=== PATIENT | male | born 1970 | race Caucasian/White ===

== ENCOUNTER → 2020-05-24 | Emergency (ER) | payer BC ==
[~2020-05-24] VITALS: Ht 162.6 cm; Wt 74.8 kg
[~2020-05-24] MED LIST: MORPHINE SULFATE 4 MG/ML SYR/VIAL IV ONE; MORPHINE SULFATE 4 MG/ML SYR/VIAL ONE; ONDANSETRON HCL 4 MG/2 ML VIAL IV ONE; ONDANSETRON HCL 4 MG/2 ML VIAL ONE
[2020-05-24 05:00] VITALS: BP 143/105
== END | disposition home or self-care (01) ==
LOC: EDBD 01:30 → ER 01:35
DX: K42.9 Umbilical hernia without obstruction or gangrene (principal)
CPT/HCPCS: 96374; 96375; 99284; J2270; J2405

== ENCOUNTER 2020-08-08 02:52 | Inpatient (IN) | payer BC ==
[~2020-08-08] VITALS: Ht 175.3 cm; Wt 86.0 kg
[2020-08-08] MEDS ORDERED: cloNIDine HCL 0.1 MG TAB PO ONE (03:30)
[2020-08-08 04:15] LABS: Basophils # (auto) 0.1 10 ^3/uL (0-0.2); Basophils % (auto) 0.9 % (0.0-2.0); Eosinophils # (auto) 0.5 10 ^3/uL (0-0.8); Eosinophils % (auto) 5.1 % (0.0-7.0); Hematocrit 50.5 % (41.0-53.0); Hemoglobin 16.8 g/dL (13.5-17.5); Lymphocytes # (auto) 1.9 10 ^3/uL (0.4-5.4); Lymphocytes % (auto) 19.7 % (10.0-50.0); Mean Corpuscular Hemoglobin 28.3 pg (28.0-32.0); Mean Corpuscular Hgb Conc. 33.4 g/dL (32.0-36.0); Mean Corpuscular Volume 84.9 fL (80.0-100.0); Monocytes # (auto) 1.1 10 ^3/uL (0-1.3); Monocytes % (auto) 11.1 % (0.0-12.0); Neutrophils % (auto) 63.2 % (37.0-80.0); Nucleated Red Blood Cells % 0.1 %; Platelet Count (auto) 370 10^3/uL (140-450); Red Blood Cells 5.94 10^6/uL (4.5-5.90); Red Cell Distribution Width 13.8 % (11.8-14.3); White Blood Cell 9.6 10^3/uL (4.4-10.8)
[2020-08-08 04:37] LABS: Albumin 3.3 g/dL (3.4-5.0); Anion Gap 7 (5-15); Blood Urea Nitrogen 23 mg/dL (7-18); Calcium 8.9 mg/dL (8.5-10.1); Carbon Dioxide 26 mmol/L (21-32); Chloride 107 mmol/L (98-107); Glucose 83 mg/dL (74-106); Potassium 3.9 mmol/L (3.5-5.1); Sodium 140 mmol/L (136-145)
[2020-08-08 04:42] LABS: Alanine Aminotransferase 51 U/L (16-61); Alkaline Phosphatase 109 U/L (45-117); Aspartate Aminotransferase 26 U/L (15-37); BUN/Creatinine Ratio 21.9; Bilirubin, Total 0.3 mg/dL (0.2-1.0); GFR African American 97 mL/min; GFR Non-African American 80 mL/min; Total Protein 7.2 g/dL (6.4-8.2)
[2020-08-08] MEDS ORDERED: LABETALOL HCL 5 MG/ML 4ML SYRINGE IV ONE (04:45)
[2020-08-08] MEDS ORDERED: TEMAZEPAM 15 MG CAP PO PRN (07:30)
[2020-08-08] MEDS ORDERED: cloNIDine HCL 0.1 MG TAB PO PRN (07:30)
[2020-08-08] MEDS ORDERED: NITROGLYCERIN 0.4 MG SL TAB SL PRN (07:30)
[2020-08-08] MEDS ORDERED: ONDANSETRON HCL 4 MG/2 ML VIAL IV PRN (07:30)
[2020-08-08] MEDS ORDERED: MORPHINE SULF INJ 2 MG/ML SYRINGE 1ML IV PRN (07:30)
[2020-08-08] MEDS ORDERED: ATORVASTATIN 20 MG TAB PO ONE (09:00)
[2020-08-08] MEDS: SODIUM CHLORIDE 0.9% 1,000 ML IV SCH ×2 (09:00→19:28)
[2020-08-08] MEDS: ASPirin 81 mg TAB PO SCH ×2 (09:00→10:18)
[2020-08-08 09:23] LABS: Cholesterol 186 mg/dL (< 200); HDL Cholesterol 43 mg/dL (40-59); LDL Cholesterol 130 mg/dL (< 100); Triglycerides 137 mg/dL (< 150)
[2020-08-08] MEDS ORDERED: ASPirin 81 mg TAB PO SCH (10:00)
--- NOTE | 2020-08-08 10:06 | NUR ---
Telemetry admit from ER DIONISIO MOORE admitted to Telemetry unit after SBAR received. Patient oriented to MAGDALENA YUSUF, primary RN, unit, room, bed, and unit policies regarding patient care and visiting hours. Patient now on continuous telemetry monitoring, tele box # 75 and telemetry reading on arrival to unit is . Patient placed on bedside oxygen, weighed by bedscale and encouraged to call if they need something. All questions and concerns addressed, patient verbalized understanding. Note:
--- NOTE | 2020-08-08 10:07 | NUR ---
U/A COLLECTED SENT TO LAB
--- NOTE | 2020-08-08 10:16 | NUR ---
CALLED DOWN TO ER TO SEE IF MORNING MEDICATIONS WERE GIVEN CONSIDERING PYKSIS SHOWS THE MEDICATIONS HAVE BEEN PULLED, PER ARABELLA STUDENT NURSE WORKING WITH KARYN RN HE DID GIVE THOSE MEDICATIONS AND NEEDS TO DOCUMENT IT
[2020-08-08] MEDS: FAMOTIDINE 20 MG TAB PO SCH ×2 (10:21→21:55)
[2020-08-08] MEDS: CLOPIDOGREL BISULFATE 75 MG TAB PO SCH (10:21)
[2020-08-08 10:22] VITALS: BP 142/94
[2020-08-08] MEDS: amLODIPine BESYLATE 5 MG TAB PO SCH (10:22)
[2020-08-08 10:39] VITALS: BP 142/94
[2020-08-08] MEDS ORDERED: IOHEXOL 350 MG/ML 100ML IJ ONE (11:01)
[2020-08-08 11:10] LABS: Alcohol, Urine < 3.0 mg/dL (0-10); Amphetamine Screen, Urine POSITIVE (NEGATIVE); Barbiturate Scree,Urine NEGATIVE (NEGATIVE); Benzodiazephine Screen, Urine NEGATIVE (NEGATIVE); Cannabinoid Screen, Urine NEGATIVE (NEGATIVE); Cocaine Screen, Urine NEGATIVE (NEGATIVE)
[2020-08-08 11:15] LABS: Urine Bacteria NONE SEEN /hpf (None Seen); Urine Blood Negative /uL (Negative); Urine Hyaline Cast FEW /lpf (0 - 2); Urine Mucus FEW (None Seen); Urine Specific Gravity 1.023 (1.001-1.035); Urine WBC 1 /hpf (0 - 3)
[2020-08-08 11:17] LABS: Opiate Scree,Urine NEGATIVE (NEGATIVE); Phencyclidine Screen, Urine NEGATIVE (NEGATIVE)
--- NOTE | 2020-08-08 11:50 | NUR ---
md meeks rounded on patient informed her of positive drug screen, pt denies illicit drug use, pt advised that he has had a stroke and is not advised to drive until cleared me neurology. also wants swallow eval to be done
[2020-08-08 12:30] VITALS: BP 131/90
--- NOTE | 2020-08-08 14:44 | NUR ---
informed pt that his urine specimen can positive for amphetamine, inquired on last use and habits, per pt "i dont know where that came from,i have to test x2 a week for my own work, i dont do that" pt denied use
--- NOTE | 2020-08-08 16:16 | NUR ---
SWALLOW EVAL ORDERED, BUT PER NURSING AND PATIENT INTERVIEW, NO DIFFICULTY WITH PO INTAKE. NO SWALLOW EVALUATION AT THIS TIME.
[2020-08-08 16:49] VITALS: BP 142/98
[2020-08-08 17:28] VITALS: BP 159/78
--- NOTE | 2020-08-08 19:30 | NUR ---
START OF SHIFT PT. ASLEEP IN BED. BED IN LOW AND LOCKED POSITION. CALL LIGHT WITHIN REACH. WILL ASSESS PATIENT WHEN THEY WAKE AND CONTINUE TO MONITOR PT. STATUS Q1HR AND PRN.
[2020-08-08 22:00] VITALS: BP 138/84
[2020-08-08] MEDS ORDERED: ATORVASTATIN 20 MG TAB PO SCH (22:00)
[2020-08-09] MEDS: SODIUM CHLORIDE 0.9% 1,000 ML IV SCH ×2 (01:35→14:05)
--- NOTE | 2020-08-09 04:15 | NUR ---
RECEIVED REPORT FROM OREN RUIZ NURSE. TAKING OVER. PATIENT ASLEEP RIGHT NOW. NO ACUTE DISTRESS SEEN.
[2020-08-09 04:58] VITALS: BP 138/94
[2020-08-09 08:00] VITALS: BP 135/96
--- NOTE | 2020-08-09 08:04 | NUR ---
OPENING SHIFT NOTE Assumed care of patient. PT is awake and A&OX4. No S/S of distress/SOB or pain. Instructed on POC and to call for assist PRN, patient verbalized understanding. Call light within reach and able to use. Will continue to monitor for changes Q1hr and PRN.
[2020-08-09] MEDS: FAMOTIDINE 20 MG TAB PO SCH ×2 (09:37→21:00)
[2020-08-09] MEDS: CLOPIDOGREL BISULFATE 75 MG TAB PO SCH (09:37)
[2020-08-09] MEDS: ASPirin 81 mg TAB PO SCH (09:37)
[2020-08-09] MEDS: amLODIPine BESYLATE 5 MG TAB PO SCH (09:37)
[2020-08-09 12:00] VITALS: BP 133/104
[2020-08-09 16:00] VITALS: BP 142/103
--- NOTE | 2020-08-09 19:25 | NUR ---
Opening shift note Assumed care of patient from day shift RN. Patient A&Ox4, respirations even and non-labored with no s/s of distress, patient had no c/o pain at this time. Discussed POC with patient who verbalized understanding. Bed in lowest locked position with 2 side rails up, call light within reach. Advised patient to call for assistance. Will continue to monitor Q1hr and PRN.
[2020-08-09 20:50] VITALS: BP 148/99
[2020-08-09] MEDS ORDERED: ATORVASTATIN 20 MG TAB PO SCH (22:00)
[2020-08-09] MEDS: ATORVASTATIN 20 MG TAB PO SCH (22:00)
[2020-08-10] MEDS: SODIUM CHLORIDE 0.9% 1,000 ML IV SCH ×3 (01:06→21:00)
--- NOTE | 2020-08-10 01:09 | NUR ---
Rounding Replaced NS bag, found patient ambulating from the restroom, A&Ox4, gait even and balanced. Patient without s/s of distress or c/o pain at this time.
--- NOTE | 2020-08-10 03:18 | NUR ---
Patient sleeping Patient resting without SOB or s/s of distress.
[2020-08-10 05:16] VITALS: BP 132/98
--- NOTE | 2020-08-10 07:13 | NUR ---
Closing shift note Patient resting, respirations even and non-labored with no s/s of distress at this time. Endorsed care to day shift RN.
--- NOTE | 2020-08-10 07:25 | NUR ---
OPENING SHIFT NOTE Resumed care of patient. PT is awake and A&OX4. No S/S of distress/SOB. Reviewed POC with pt and instructed to to call for assist PRN, patient verbalized understanding. Call light within reach and able to use. Will continue to monitor for changes Q1hr and PRN.
[2020-08-10 08:38] VITALS: BP 159/117
[2020-08-10] MEDS: FAMOTIDINE 20 MG TAB PO SCH ×2 (08:53→20:54)
[2020-08-10] MEDS: ASPirin 81 mg TAB PO SCH (08:53)
[2020-08-10] MEDS: ACETAMINOPHEN 325 MG TAB PO PRN ×2 (08:53→21:19)
[2020-08-10] MEDS: amLODIPine BESYLATE 5 MG TAB PO SCH (08:54)
[2020-08-10] MEDS: CLOPIDOGREL BISULFATE 75 MG TAB PO SCH (08:54)
--- NOTE | 2020-08-10 10:19 | NUR ---
PTS BP IS 159/117. DR TRAN IS AWARE. INSTRUCTED TO USE CLONIDINE ORDERED.
[2020-08-10 13:00] VITALS: BP 146/113
--- NOTE | 2020-08-10 14:05 | NUR ---
Nutrition Assessment Notes Please refer to link for full assessment notes. Est Energy needs: 5882-5934 kcals (20-23 kcal/kgBW) Est Protein needs: 70-88 gms/day (0.8-1.0 gm/kgBW) Will continue to monitor and reassess prn. Addendum: 08/10/20 at [address] Amended: Links added.
[2020-08-10 17:00] VITALS: BP 151/108
--- NOTE | 2020-08-10 19:20 | NUR ---
Opening shift note Assumed care of patient who is A&Ox4, respirations even and non-labored with no s/s of distress. Discussed POC with patient who verbalized understanding. Bed in lowest locked position with 2 side rails up, call light within reach. Advised patient to call for assistance. Will continue to monitor Q1hr and PRN.
[2020-08-10] MEDS: ATORVASTATIN 20 MG TAB PO SCH (20:54)
--- NOTE | 2020-08-10 21:25 | NUR ---
Patient c/o headache Administered Tylenol per EMAR. Will continue to monitor.
[2020-08-10 22:14] VITALS: BP 156/114
--- NOTE | 2020-08-10 23:00 | NUR ---
Headache reassessed Patient resting without s/s of distress or c/o pain at this time. Will continue to monitor.
[2020-08-11 00:32] VITALS: BP 150/113
[2020-08-11 04:48] VITALS: BP 154/120
--- NOTE | 2020-08-11 05:12 | NUR ---
Patient resting Awoke on entry. Patient stated that he felt good and did not feel any pain or headache at the time. Will continue to monitor.
--- NOTE | 2020-08-11 07:31 | NUR ---
Closing shift note Patient resting with no s/s of distress at this time. Endorsed care to day shift RN.
[2020-08-11] MEDS: SODIUM CHLORIDE 0.9% 1,000 ML IV SCH (08:19)
[2020-08-11 09:00] VITALS: BP 141/106
[2020-08-11] MEDS: ACETAMINOPHEN 325 MG TAB PO PRN (09:07)
[2020-08-11] MEDS: ASPirin 81 mg TAB PO SCH (09:53)
[2020-08-11] MEDS: FAMOTIDINE 20 MG TAB PO SCH (09:55)
[2020-08-11] MEDS: CLOPIDOGREL BISULFATE 75 MG TAB PO SCH (09:55)
[2020-08-11] MEDS: amLODIPine BESYLATE 5 MG TAB PO SCH (09:55)
[2020-08-11] MEDS ORDERED: AML5T PO (12:26)
[2020-08-11] MEDS ORDERED: ASPI-231 PO (12:26)
[2020-08-11] MEDS ORDERED: ATOR20TA50 PO (12:26)
[2020-08-11] MEDS ORDERED: LOSA-69 PO (12:27)
[2020-08-11] MEDS ORDERED: HYDR12.55 PO (12:28)
[2020-08-11] MEDS ORDERED: METO25TA93 PO (12:29)
[2020-08-11] MEDS ORDERED: FAMO-12 PO (12:35)
--- NOTE | 2020-08-11 13:50 | NUR ---
Discharge Went over discharge paperwork with patient. Instructed to call Dr. Pinto's office to schedule a follow up visit and stressed that he is not to drive until he is cleared by Neurology. Prescriptions were called in to [facility] by the MD; patient does not have his own outside pharmacy. Removed IV intact, no problem. Removed telemetry box and sent to ICU per hospital protocol. 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 Patient denies any dizziness anymore and states he will definitely take his medications from now on.
== END 2020-08-11 13:45 | disposition home or self-care (01) | DRG 65 ==
LOC: ER 02:53 → TELE 02:54 → TELE-WESTW 10:08
PROVIDERS: ADMIT Nurse Practitioner; ATTEND Internal Medicine Nephrology
DX: I63.9 Cerebral infarction, unspecified (principal); F05 Delirium due to known physiological condition; I16.1 Hypertensive emergency; E66.3 Overweight; E78.5 Hyperlipidemia, unspecified; F15.10 Other stimulant abuse, uncomplicated; I70.0 Atherosclerosis of aorta; Z79.02 Long term (current) use of antithrombotics/antiplatelets; Z79.82 Long term (current) use of aspirin; Z79.899 Other long term (current) drug therapy; Z82.3 Family history of stroke; Z82.49 Family history of ischemic heart disease and other diseases of the circulatory system; Z91.14 Patient's other noncompliance with medication regimen; Z91.19 Patient's noncompliance with other medical treatment and regimen; I10 Essential (primary) hypertension; I07.1 Rheumatic tricuspid insufficiency; R26.9 Unspecified abnormalities of gait and mobility; R29.700 NIHSS score 0; R53.1 Weakness
CPT/HCPCS: 36415; 70450; 70496; 70498; 70551; 71045; 80053; 80061; 80307; 81001; 83880; 84484; 85025; 93005; 93306; 96361; 96374; G0378; J3490

== ENCOUNTER → 2020-09-01 | Outpatient (CLI) | payer BC ==
[~2020-09-01] MED LIST changes: +ASPI-231 PO; +ATOR20TA50 PO; +FAMO-12 PO; +HYDR12.55 PO; +LOSA-69 PO; +METO25TA93 PO; -MORPHINE SULFATE 4 MG/ML SYR/VIAL IV ONE; -MORPHINE SULFATE 4 MG/ML SYR/VIAL ONE; -ONDANSETRON HCL 4 MG/2 ML VIAL IV ONE; -ONDANSETRON HCL 4 MG/2 ML VIAL ONE
[2020-09-01 10:28] LABS: Basophils # (auto) 0.1 10 ^3/uL (0-0.2); Eosinophils # (auto) 0.3 10 ^3/uL (0-0.8); Monocytes # (auto) 0.7 10 ^3/uL (0-1.3); White Blood Cell 7.4 10^3/uL (4.4-10.8)
[2020-09-01 10:31] LABS: Eosinophils % (auto) 4.1 % (0.0-7.0); Hematocrit 47.2 % (41.0-53.0); Hemoglobin 16.3 g/dL (13.5-17.5); Lymphocytes # (auto) 2.1 10 ^3/uL (0.4-5.4); Lymphocytes % (auto) 28.3 % (10.0-50.0); Mean Corpuscular Hemoglobin 28.7 pg (28.0-32.0); Mean Corpuscular Hgb Conc. 34.5 g/dL (32.0-36.0); Mean Corpuscular Volume 83.2 fL (80.0-100.0); Monocytes % (auto) 9.4 % (0.0-12.0); Neutrophils # (auto) 4.2 10 ^3/uL (1.6-8.6); Neutrophils % (auto) 57.2 % (37.0-80.0); Red Blood Cells 5.67 10^6/uL (4.5-5.90); Red Cell Distribution Width 13.6 % (11.8-14.3)
[2020-09-01 10:39] LABS: Platelet Count (auto) 466 10^3/uL (140-450)
[2020-09-01 10:47] LABS: Albumin 3.5 g/dL (3.4-5.0); Calcium 9.3 mg/dL (8.5-10.1); Potassium 3.6 mmol/L (3.5-5.1)
[2020-09-01 10:52] LABS: BUN/Creatinine Ratio 24.2; Bilirubin, Total 0.5 mg/dL (0.2-1.0); Total Protein 7.4 g/dL (6.4-8.2)
== END | disposition home or self-care (01) ==
LOC: LAB 09:41
PROVIDERS: ATTEND Internal Medicine Nephrology
DX: I12.9 Hypertensive chronic kidney disease with stage 1 through stage 4 chronic kidney disease, or unspecified chronic kidney disease (principal); N18.30 Chronic kidney disease, stage 3 unspecified; I63.9 Cerebral infarction, unspecified
CPT/HCPCS: 36415; 80053; 85025

== ENCOUNTER 2020-09-04 11:21 | Emergency (ER) | payer BC ==
[~2020-09-04] VITALS: Ht 175.3 cm; Wt 86.2 kg
[2020-09-04 11:31] VITALS: BP 123/95
== END 2020-09-04 11:53 | disposition left against medical advice (07) ==
LOC: ER 11:21
DX: R51.9 Headache, unspecified (principal); Z53.21 Procedure and treatment not carried out due to patient leaving prior to being seen by health care provider

== ENCOUNTER 2020-11-16 20:21 | Emergency (ER) | payer BC ==
[~2020-11-16] VITALS: Ht 175.3 cm; Wt 81.6 kg
[~2020-11-16 20:21] MED LIST changes: -ASPI-231 PO; -LOSA-69 PO; -METO25TA93 PO
[2020-11-16] MEDS ORDERED: cloNIDine HCL 0.1 MG TAB PO ONE (21:30)
[2020-11-16 21:50] VITALS: BP 186/105
[2020-11-17 01:02] LABS: Basophils # (auto) 0 10 ^3/uL (0-0.2); Basophils % (auto) 0.2 % (0.0-2.0); Eosinophils # (auto) 0.4 10 ^3/uL (0-0.8); Eosinophils % (auto) 5.3 % (0.0-7.0); Hematocrit 47.7 % (41.0-53.0); Hemoglobin 16.1 g/dL (13.5-17.5); Lymphocytes # (auto) 2.5 10 ^3/uL (0.4-5.4); Lymphocytes % (auto) 29.7 % (10.0-50.0); Mean Corpuscular Hemoglobin 28.4 pg (28.0-32.0); Mean Corpuscular Hgb Conc. 33.7 g/dL (32.0-36.0); Mean Corpuscular Volume 84.3 fL (80.0-100.0); Monocytes # (auto) 0.9 10 ^3/uL (0-1.3); Monocytes % (auto) 10.3 % (0.0-12.0); Neutrophils # (auto) 4.6 10 ^3/uL (1.6-8.6); Neutrophils % (auto) 54.5 % (37.0-80.0); Nucleated Red Blood Cells % 0.1 %; Platelet Count (auto) 358 10^3/uL (140-450); Red Blood Cells 5.66 10^6/uL (4.5-5.90); Red Cell Distribution Width 14.2 % (11.8-14.3); White Blood Cell 8.5 10^3/uL (4.4-10.8)
[2020-11-17 01:27] LABS: Albumin 3.4 g/dL (3.4-5.0); Anion Gap 6 (5-15); BUN/Creatinine Ratio 18.1; Blood Urea Nitrogen 19 mg/dL (7-18); Carbon Dioxide 27 mmol/L (21-32); Chloride 106 mmol/L (98-107); GFR African American 96 mL/min; GFR Non-African American 79 mL/min; Glucose 84 mg/dL (74-106); Magnesium 2.4 mg/dL (1.6-2.6); Potassium 4.4 mmol/L (3.5-5.1); Sodium 139 mmol/L (136-145)
[2020-11-17 01:34] LABS: Alanine Aminotransferase 45 U/L (16-61); Alkaline Phosphatase 107 U/L (45-117); Aspartate Aminotransferase 22 U/L (15-37); Bilirubin, Total 0.4 mg/dL (0.2-1.0); Total Protein 7.3 g/dL (6.4-8.2)
== END 2020-11-17 04:07 | disposition home or self-care (01) ==
LOC: ER 20:23
DX: I12.9 Hypertensive chronic kidney disease with stage 1 through stage 4 chronic kidney disease, or unspecified chronic kidney disease (principal); N18.9 Chronic kidney disease, unspecified; H66.90 Otitis media, unspecified, unspecified ear; R07.89 Other chest pain; Z79.899 Other long term (current) drug therapy
CPT/HCPCS: 36415; 70450; 71045; 80053; 83735; 83880; 84484; 85025; 93005

== ENCOUNTER 2022-05-20 21:41 | Inpatient (IN) | payer BC ==
[~2022-05-20] VITALS: Ht 177.8 cm; Wt 86.1 kg
[2022-05-20] MEDS ORDERED: ACETAMINOPHEN 325 MG TAB PO ONE ×2 (22:15)
[2022-05-20] MEDS ORDERED: SODIUM CHLORIDE 0.9% 1,000 ML IV ONE (22:15)
[2022-05-20 23:28] LABS: Basophils # (auto) 0 10 ^3/uL (0-0.2); Basophils % (auto) 0.3 % (0.0-2.0); Eosinophils # (auto) 0.1 10 ^3/uL (0-0.8); Eosinophils % (auto) 1.1 % (0.0-7.0); Hemoglobin 15.5 g/dL (13.5-17.5); Lymphocytes # (auto) 0.3 10 ^3/uL (0.4-5.4); Lymphocytes % (auto) 3.1 % (10.0-50.0); Mean Corpuscular Hemoglobin 27.9 pg (28.0-32.0); Mean Corpuscular Hgb Conc. 33.6 g/dL (32.0-36.0); Monocytes # (auto) 1.2 10 ^3/uL (0-1.3); Neutrophils # (auto) 6.7 10 ^3/uL (1.6-8.6); Neutrophils % (auto) 80.5 % (37.0-80.0); Red Blood Cells 5.55 10^6/uL (4.5-5.90); Red Cell Distribution Width 14.1 % (11.8-14.3); White Blood Cell 8.3 10^3/uL (4.4-10.8)
[2022-05-20 23:47] LABS: Albumin 3.4 g/dL (3.4-5.0); BUN/Creatinine Ratio 13.3; Calcium 8.2 mg/dL (8.5-10.1); Potassium 3.3 mmol/L (3.5-5.1)
[2022-05-20 23:48] LABS: Bilirubin, Total 0.7 mg/dL (0.2-1.0); Total Protein 6.6 g/dL (6.4-8.2)
[2022-05-21 01:55] LABS: INR 1.13 (0.9-1.15); Partial Thromboplastin Time 30.2 sec (23.6-33.0)
[2022-05-21] MEDS ORDERED: ACETAMINOPHEN 325 MG TAB PO ONE (04:00)
[2022-05-21] MEDS ORDERED: LABETALOL HCL 5 MG/ML 4ML SYRINGE IV ONE (04:00)
[2022-05-21] MEDS ORDERED: cefTRIAXone 1GM/50ML D5W 50 ML IV ONE (04:15)
[2022-05-21] MEDS ORDERED: AZITHROMYCIN 500MG/ 250ML 250 ML IV ONE (04:15)
[2022-05-21] MEDS ORDERED: ALBUTEROL SULF HFA 90MCG INH 200DOSE IN PRN (04:15)
[2022-05-21] MEDS ORDERED: ACETAMINOPHEN 500 MG TAB PO PRN (04:15)
[2022-05-21] MEDS ORDERED: DOCUSATE SOD 100 MG CAP PO PRN (04:15)
[2022-05-21] MEDS ORDERED: SOD CHL 0.45% 1,000 ML IV SCH (04:15)
[2022-05-21] MEDS ORDERED: HYDROcodone-ACET 5/325MG TAB PO PRN (04:15)
[2022-05-21] MEDS ORDERED: hydrALAZINE HCL 20 MG/ML VL IV PRN (04:15)
[2022-05-21] MEDS ORDERED: ONDANSETRON HCL 4 MG/2 ML VIAL IV PRN (04:15)
[2022-05-21] MEDS ORDERED: IOHEXOL 300 MG/ML 100ML BOTTLE IJ ONE (04:31)
[2022-05-21] MEDS ORDERED: MORPHINE SULFATE INJ 2 MG/ml SYRG IV PRN (05:30)
[2022-05-21] MEDS ORDERED: NITROGLYCERIN 0.4 MG SL TAB SL PRN (05:30)
[2022-05-21 07:12] LABS: Albumin 3.2 g/dL (3.4-5.0); Magnesium 2.2 mg/dL (1.6-2.6); Potassium 3.2 mmol/L (3.5-5.1)
[2022-05-21 07:15] LABS: BUN/Creatinine Ratio 11.5; Basophils # (auto) 0 10 ^3/uL (0-0.2); Basophils % (auto) 0.3 % (0.0-2.0); Bilirubin, Total 0.6 mg/dL (0.2-1.0); Eosinophils # (auto) 0 10 ^3/uL (0-0.8); Eosinophils % (auto) 0.5 % (0.0-7.0); Hematocrit 47.1 % (41.0-53.0); Mean Corpuscular Hemoglobin 28.3 pg (28.0-32.0); Mean Corpuscular Hgb Conc. 33.9 g/dL (32.0-36.0); Mean Corpuscular Volume 83.3 fL (80.0-100.0); Neutrophils % (auto) 75.1 % (37.0-80.0); Red Blood Cells 5.66 10^6/uL (4.5-5.90); Red Cell Distribution Width 14.2 % (11.8-14.3); Total Protein 6.6 g/dL (6.4-8.2)
[2022-05-21 07:25] LABS: Lymphocytes # (auto) 0.6 10 ^3/uL (0.4-5.4); Lymphocytes % (auto) 6.9 % (10.0-50.0); Monocytes # (auto) 1.3 10 ^3/uL (0-1.3); Monocytes % (auto) 17.2 % (0.0-12.0)
[2022-05-21] MEDS: POTASSIUM CHL 20MEQ/100ML 100 ML IV SCH ×2 (08:21→11:00)
[2022-05-21] MEDS ORDERED: FAMOTIDINE (10MG/ML) 2ML VL IV SCH (10:00)
[2022-05-21] MEDS ORDERED: CHOLECALCIFEROL (VITD3) 2,000 UNIT CAP/TAB PO SCH (10:00)
[2022-05-21] MEDS ORDERED: MULTIPLE VITAMIN TAB PO SCH (10:00)
[2022-05-21] MEDS ORDERED: ASCORBIC ACID 1,000 MG TAB PO SCH (10:00)
[2022-05-21] MEDS ORDERED: DexAMETHasone SOD PHOS 10MG/1ML VIAL INJ IV SCH (10:00)
[2022-05-21] MEDS ORDERED: amLODIPine BESYLATE 5 MG TAB PO SCH (10:00)
[2022-05-21] MEDS ORDERED: ZINC SULFATE 220mg CAP or TAB PO SCH (10:00)
[2022-05-21] MEDS ORDERED: ENOXAPARIN SOD 40 MG/0.4 ML SYRINGE SC SCH (10:00)
[2022-05-21] MEDS ORDERED: METOPROLOL TARTRATE 50 MG TAB PO SCH (10:00)
[2022-05-21] MEDS ORDERED: BUDESONIDE (INHALATION) 180 MCG IH IN SCH (10:00)
[2022-05-21 10:22] VITALS: BP 140/94
[2022-05-21] MEDS ORDERED: AZIT500T66 PO (12:12)
[2022-05-21 12:25] VITALS: BP 150/98
[2022-05-21 12:50] VITALS: BP 150/106
[2022-05-21 15:28] VITALS: BP 148/98
[2022-05-21] MEDS ORDERED: cefTRIAXone 1GM/50ML D5W 50 ML IV SCH (21:00)
[2022-05-21] MEDS ORDERED: AZITHROMYCIN 500MG/ 250ML 250 ML IV SCH (22:00)
== END 2022-05-21 17:22 | disposition home or self-care (01) | DRG 177 ==
LOC: ER 21:41 → EDBD 21:41 → OVERFLOW 05-21 05:22 → CENTRAL 05-21 10:28
PROVIDERS: ADMIT Nurse Practitioner Family; ATTEND Internal Medicine Pulmonary Disease
DX: U07.1 COVID-19 (principal); J12.82 Pneumonia due to coronavirus disease 2019; E87.6 Hypokalemia; G44.209 Tension-type headache, unspecified, not intractable; I12.9 Hypertensive chronic kidney disease with stage 1 through stage 4 chronic kidney disease, or unspecified chronic kidney disease; N18.9 Chronic kidney disease, unspecified; Z86.73 Personal history of transient ischemic attack (TIA), and cerebral infarction without residual deficits
CPT/HCPCS: 36415; 70450; 71045; 71260; 74177; 80053; 82306; 83036; 83605; 83735; 85025; 85379; 85610; 85730; 87040; 93005; 94640; 96365; 96375; G0378; J0696; J1100; J3480; J3490

== ENCOUNTER 2022-11-26 20:39 | Inpatient (IN) | payer BC ==
[~2022-11-26] VITALS: Ht 182.9 cm; Wt 94.4 kg
[~2022-11-26 20:39] MED LIST changes: +AZIT500T66 PO
[2022-11-26] MEDS ORDERED: SODIUM CHLORIDE 0.9% 1,000 ML IV ONE (22:45)
[2022-11-26] MEDS ORDERED: MORPHINE SULFATE 4 MG/ML SYR/VIAL IV ONE (22:45)
[2022-11-26] MEDS ORDERED: ONDANSETRON HCL 4 MG/2 ML VIAL IV ONE (22:45)
[2022-11-26 23:47] LABS: Hemoglobin 18.8 g/dL (13.5-17.5)
[2022-11-26 23:48] LABS: Basophils # (auto) 0.1 10 ^3/uL (0-0.2); Basophils % (auto) 0.7 % (0.0-2.0); Eosinophils # (auto) 0.1 10 ^3/uL (0-0.8); Eosinophils % (auto) 0.8 % (0.0-7.0); Lymphocytes # (auto) 0.5 10 ^3/uL (0.4-5.4); Lymphocytes % (auto) 3.5 % (10.0-50.0); Mean Corpuscular Hgb Conc. 33.5 g/dL (32.0-36.0); Mean Corpuscular Volume 83.6 fL (80.0-100.0); Monocytes # (auto) 0.4 10 ^3/uL (0-1.3); Monocytes % (auto) 2.3 % (0.0-12.0); Neutrophils # (auto) 14.5 10 ^3/uL (1.6-8.6); Neutrophils % (auto) 92.7 % (37.0-80.0); Nucleated Red Blood Cells % 0.8 %; Red Cell Distribution Width 14.2 % (11.8-14.3); White Blood Cell 15.7 10^3/uL (4.4-10.8)
[2022-11-27] LABS: BUN/Creatinine Ratio 19.3; Calcium 10.1 mg/dL (8.5-10.1); Potassium 3.8 mmol/L (3.5-5.1)
[2022-11-27 00:11] LABS: Bilirubin, Total 0.9 mg/dL (0.2-1.0); Total Protein 7.6 g/dL (6.4-8.2)
[2022-11-27] MEDS ORDERED: HYDROcodone-ACET 5/325MG TAB PO PRN (02:15)
[2022-11-27] MEDS ORDERED: MAALOX PLUS or MAALOX 30 ML PO PRN (02:15)
[2022-11-27] MEDS ORDERED: ONDANSETRON HCL 4 MG/2 ML VIAL IV PRN ×3 (02:15→14:30)
[2022-11-27] MEDS ORDERED: ACETAMINOPHEN 325 MG TAB PO PRN (02:15)
[2022-11-27] MEDS ORDERED: D5W 5% 1,000 ML IV SCH (02:15)
[2022-11-27] MEDS ORDERED: DOCUSATE SOD 100 MG CAP PO PRN (02:15)
[2022-11-27] MEDS ORDERED: LORazepam 0.5 MG TAB PO PRN (02:15)
[2022-11-27] MEDS ORDERED: TEMAZEPAM 15 MG CAP PO PRN (02:15)
[2022-11-27] MEDS: metroNIDAZOLE 500MG/100ML 100 ML IV SCH ×3 (02:48→22:30)
[2022-11-27 08:07] LABS: Eosinophils # (auto) 0 10 ^3/uL (0-0.8); Hemoglobin 17.6 g/dL (13.5-17.5); Mean Corpuscular Hemoglobin 28.1 pg (28.0-32.0); Mean Corpuscular Hgb Conc. 33.7 g/dL (32.0-36.0); Mean Corpuscular Volume 83.3 fL (80.0-100.0)
[2022-11-27 08:09] LABS: Basophils # (auto) 0.1 10 ^3/uL (0-0.2); Basophils % (auto) 0.4 % (0.0-2.0); Hematocrit 52.2 % (41.0-53.0); Lymphocytes # (auto) 0.6 10 ^3/uL (0.4-5.4); Lymphocytes % (auto) 4.9 % (10.0-50.0); Monocytes % (auto) 7.7 % (0.0-12.0); Neutrophils # (auto) 10.9 10 ^3/uL (1.6-8.6); Red Blood Cells 6.27 10^6/uL (4.5-5.90); Red Cell Distribution Width 14.2 % (11.8-14.3); White Blood Cell 12.6 10^3/uL (4.4-10.8)
[2022-11-27 08:24] LABS: BUN/Creatinine Ratio 18.4; Calcium 8.9 mg/dL (8.5-10.1); Potassium 3.4 mmol/L (3.5-5.1)
[2022-11-27] MEDS: MORPHINE SULFATE INJ 2 MG/ml SYRG IV PRN (08:26)
[2022-11-27 09:33] LABS: Urine Bacteria NONE SEEN /hpf (None Seen); Urine Blood Negative /uL (Negative); Urine Hyaline Cast FEW /lpf (0 - 2); Urine Mucus FEW (None Seen); Urine Specific Gravity 1.037 (1.001-1.035); Urine WBC 2 /hpf (0 - 3)
[2022-11-27] MEDS ORDERED: cefTRIAXone 1GM/50ML D5W 50 ML IV ONE (11:30)
[2022-11-27] MEDS ORDERED: fentaNYL CITRATE 100 MCG/2 ML VL ONE (11:47)
[2022-11-27] MEDS ORDERED: HYDROmorphone HCL 2 MG/ML VL/or syr ONE (11:47)
[2022-11-27] MEDS ORDERED: MIDAZOLAM HCL 2MG/2ML 2ml VIAL (1mg/ml) ONE (11:48)
[2022-11-27] MEDS ORDERED: DexAMETHasone SOD PHOS 10MG/1ML VIAL INJ ONE (11:49)
[2022-11-27] MEDS ORDERED: KETOROLAC TROMETH 30 MG/ML 1ML VIAL ONE (11:49)
[2022-11-27] MEDS ORDERED: PROPOFOL 10 MG/ML 20 ML IV ONE (11:49)
[2022-11-27] MEDS ORDERED: LIDOCAINE 2% (LOCAL ANESTH.) PF 5ml SDV ONE (11:49)
[2022-11-27] MEDS ORDERED: GLYCOPYRROLATE 0.2 MG/ML 1ML VIAL ONE (11:49)
[2022-11-27] MEDS ORDERED: ePHEDrine SULFATE 50 MG/ML AMP ONE (11:49)
[2022-11-27] MEDS ORDERED: ONDANSETRON HCL 4 MG/2 ML VIAL ONE (11:49)
[2022-11-27 11:52] LABS: INR 1.05 (0.9-1.15); Partial Thromboplastin Time 27.5 sec (24.6-33.4)
[2022-11-27] MEDS ORDERED: ceFAZolin 1GM VL ONE (12:38)
[2022-11-27] MEDS ORDERED: LIDOCAINE 1%-Mpf/Epinephrine 1:200,000 ONE (12:51)
[2022-11-27] MEDS ORDERED: BUPIVACAINE 0.25% INJ 50ML VIAL ONE (12:51)
[2022-11-27] MEDS ORDERED: SUGAMMADEX 200mg/2ml Vial (100MG/ML) IV ONE (13:51)
[2022-11-27] MEDS ORDERED: POVIDONE IODINE 10 % TOPICAL OINT 30GM TOP ONE (13:59)
[2022-11-27] MEDS ORDERED: ACETAMINOPHEN/CODEINE#3 (300/30mg) TAB PO PRN (14:00)
[2022-11-27] MEDS ORDERED: HYDROmorphone HCL 2 MG/ML VL/or syr IV ONE (14:00)
[2022-11-27] MEDS ORDERED: MEPERIDINE HCL (25 MG/ML) 1ML VIAL ONE (14:05)
[2022-11-27] MEDS ORDERED: HYDROmorphone HCL 2 MG/ML VL/or syr IV PRN (14:30)
[2022-11-27 17:00] VITALS: BP 118/82
[2022-11-27] MEDS: D5W/SOD CHL 0.45%/KCL 20MEQ 1,000 ML IV SCH (20:46)
[2022-11-27] MEDS: ceFAZolin 1GM/50ML 50 ML IV SCH (21:45)
[2022-11-27 22:00] VITALS: BP 119/86
[2022-11-28 05:00] VITALS: BP 128/90
[2022-11-28] MEDS: ceFAZolin 1GM/50ML 50 ML IV SCH ×3 (05:45→21:42)
[2022-11-28] MEDS: metroNIDAZOLE 500MG/100ML 100 ML IV SCH ×3 (06:30→22:20)
[2022-11-28] MEDS: MORPHINE SULFATE INJ 2 MG/ml SYRG IV PRN ×2 (06:30→15:51)
[2022-11-28] MEDS: D5W/SOD CHL 0.45%/KCL 20MEQ 1,000 ML IV SCH ×3 (06:40→23:20)
[2022-11-28] MEDS: PANTOPRAZOLE 40 MG/10 ML VIAL INJ IV SCH (08:30)
[2022-11-28 09:00] VITALS: BP 138/90
[2022-11-28] MEDS ORDERED: cefTRIAXone 1GM/50ML D5W 50 ML IV SCH (09:00)
[2022-11-28 13:00] VITALS: BP 136/89
[2022-11-28 17:00] VITALS: BP 156/107
[2022-11-28 22:00] VITALS: BP 137/87
[2022-11-29 05:00] VITALS: BP 156/97
[2022-11-29] MEDS: ceFAZolin 1GM/50ML 50 ML IV SCH ×3 (05:43→21:45)
[2022-11-29] MEDS: MORPHINE SULFATE INJ 2 MG/ml SYRG IV PRN (05:45)
[2022-11-29] MEDS: metroNIDAZOLE 500MG/100ML 100 ML IV SCH ×3 (06:30→22:20)
[2022-11-29] MEDS: PANTOPRAZOLE 40 MG/10 ML VIAL INJ IV SCH (08:21)
[2022-11-29 09:00] VITALS: BP 169/107
[2022-11-29] MEDS ORDERED: cloNIDine HCL 0.1 MG TAB PO ONE (09:15)
[2022-11-29] MEDS: MUPIROCIN 2% OINT 15gm or 22gm FOR MRSA NARES EACHNOSTRI SCH ×2 (10:00→22:00)
[2022-11-29 11:04] VITALS: BP 125/91
[2022-11-29 13:00] VITALS: BP 130/92
[2022-11-29 17:00] VITALS: BP 139/92
[2022-11-29 22:00] VITALS: BP 135/98
[2022-11-30 05:00] VITALS: BP 158/109
[2022-11-30] MEDS: ceFAZolin 1GM/50ML 50 ML IV SCH ×2 (05:55→13:05)
[2022-11-30] MEDS: metroNIDAZOLE 500MG/100ML 100 ML IV SCH ×3 (06:06→13:06)
[2022-11-30] MEDS ORDERED: cloNIDine HCL 0.1 MG TAB PO ONE (06:15)
[2022-11-30] MEDS: PANTOPRAZOLE 40 MG/10 ML VIAL INJ IV SCH (08:09)
[2022-11-30] MEDS: MUPIROCIN 2% OINT 15gm or 22gm FOR MRSA NARES EACHNOSTRI SCH (08:12)
[2022-11-30 09:14] VITALS: BP 113/80
[2022-11-30 09:51] VITALS: BP 166/106
[2022-11-30 10:15] VITALS: BP 113/80
[2022-11-30] MEDS ORDERED: LEVO750T8 PO (10:42)
[2022-11-30] MEDS ORDERED: METR500T PO (10:42)
[2022-11-30] MEDS ORDERED: HYDR-4902 PO (10:42)
[2022-11-30 13:30] VITALS: BP 125/92
[2022-11-30 15:03] VITALS: BP 162/106
== END 2022-11-30 15:31 | disposition home or self-care (01) | DRG 854 ==
LOC: ER 20:39 → EDBD 20:39 → OVERFLOW 11-27 02:24 → EAST 11-27 12:20
PROVIDERS: ADMIT Hospitalist; ATTEND Family Medicine
PROC: 0WQF0ZZ Repair Abdominal Wall, Open Approach (ICD-10-PCS; principal; 2022-11-27 12:53)
DX: A41.9 Sepsis, unspecified organism (principal); K42.0 Umbilical hernia with obstruction, without gangrene; K43.6 Other and unspecified ventral hernia with obstruction, without gangrene; E86.0 Dehydration; I10 Essential (primary) hypertension; Z20.822 Contact with and (suspected) exposure to COVID-19; N18.9 Chronic kidney disease, unspecified; I12.9 Hypertensive chronic kidney disease with stage 1 through stage 4 chronic kidney disease, or unspecified chronic kidney disease; Z86.73 Personal history of transient ischemic attack (TIA), and cerebral infarction without residual deficits
CPT/HCPCS: 36415; 74176; 80048; 80053; 81001; 83690; 84484; 85025; 85610; 85730; 86850; 86900; 86901; 87081; 87426; 88302; 93005; 96361; 96374; 96375; 97163; C9113; G0378; J0690; J0696; J1100; J1885; J2001; J2250; J2405; J2704; J3490

== ENCOUNTER 2023-06-02 02:58 | Inpatient (IN) | payer BC ==
[~2023-06-02] VITALS: Ht 175.3 cm; Wt 105.4 kg
[~2023-06-02 02:58] MED LIST changes: +HYDR-4902 PO; +LEVO750T8 PO; +METR500T PO
[2023-06-02 04:17] LABS: Basophils # (auto) 0.1 10 ^3/uL (0-0.2); Basophils % (auto) 0.9 % (0.0-2.0); Eosinophils # (auto) 0.3 10 ^3/uL (0-0.8); Eosinophils % (auto) 2.8 % (0.0-7.0); Hemoglobin 17.4 g/dL (13.5-17.5); Lymphocytes # (auto) 1.5 10 ^3/uL (0.4-5.4); Lymphocytes % (auto) 12.5 % (10.0-50.0); Mean Corpuscular Hemoglobin 29.4 pg (28.0-32.0); Mean Corpuscular Hgb Conc. 34.8 g/dL (32.0-36.0); Mean Corpuscular Volume 84.5 fL (80.0-100.0); Monocytes # (auto) 1.3 10 ^3/uL (0-1.3); Monocytes % (auto) 10.9 % (0.0-12.0); Neutrophils # (auto) 8.7 10 ^3/uL (1.6-8.6); Neutrophils % (auto) 72.9 % (37.0-80.0); Nucleated Red Blood Cells % 0.2 %; Red Blood Cells 5.92 10^6/uL (4.5-5.90); Red Cell Distribution Width 14.4 % (11.8-14.3); White Blood Cell 11.9 10^3/uL (4.4-10.8)
[2023-06-02] MEDS ORDERED: hydrALAZINE HCL 20 MG/ML VL IV ONE (04:30)
[2023-06-02 04:34] LABS: Albumin 3.8 g/dL (3.4-5.0); Calcium 8.7 mg/dL (8.5-10.1); Potassium 3.7 mmol/L (3.5-5.1)
[2023-06-02 04:36] LABS: BUN/Creatinine Ratio 12.5 (10.0-20.0)
[2023-06-02 04:38] LABS: Bilirubin, Total 1.1 mg/dL (0.2-1.0); Total Protein 7.4 g/dL (6.4-8.2)
[2023-06-02] MEDS ORDERED: HYDROmorphone HCL 2 MG/ML VL/or syr IV ONE (04:45)
[2023-06-02] MEDS ORDERED: ONDANSETRON HCL 4 MG/2 ML VIAL IV ONE (04:45)
[2023-06-02 10:50] LABS: Phosphorus 3.3 mg/dL (2.5-4.90)
[2023-06-02 11:56] LABS: INR 1.05 (0.9-1.15)
[2023-06-02] MEDS: CYCLOBENZAPRINE HCL 10 MG TAB PO PRN ×2 (12:10→22:07)
[2023-06-02] MEDS: MORPHINE SULFATE INJ 2 MG/ml SYRG IV PRN (12:11)
[2023-06-02] MEDS: hydrALAZINE HCL 20 MG/ML VL IV PRN (12:11)
[2023-06-02 12:25] LABS: Urine Bacteria FEW /hpf (None Seen); Urine Blood Negative /uL (Negative); Urine Mucus MODERATE (None Seen); Urine Specific Gravity 1.033 (1.001-1.035); Urine WBC 2 /hpf (0 - 3)
[2023-06-02] MEDS ORDERED: METOPROLOL TARTRATE 50 MG TAB PO ONE (15:30)
[2023-06-02] MEDS ORDERED: KETOROLAC TROMETH 30 MG/ML 1ML VIAL IV ONE (15:30)
[2023-06-02] MEDS: SODIUM CHLORIDE 0.9% 1,000 ML IV SCH (19:30)
[2023-06-02] MEDS ORDERED: LORazepam 2MG/ML-1ML VIAL IV PRN (19:30)
[2023-06-02] MEDS: KETOROLAC TROMETH 30 MG/ML 1ML VIAL IV SCH (20:08)
[2023-06-02 20:28] LABS: Alcohol, Urine < 3.0 mg/dL (0-10); Amphetamine Screen, Urine NEGATIVE (NEGATIVE); Barbiturate Scree,Urine NEGATIVE (NEGATIVE); Benzodiazephine Screen, Urine NEGATIVE (NEGATIVE); Cannabinoid Screen, Urine NEGATIVE (NEGATIVE); Cocaine Screen, Urine NEGATIVE (NEGATIVE); Opiate Scree,Urine NEGATIVE (NEGATIVE); Phencyclidine Screen, Urine NEGATIVE (NEGATIVE)
[2023-06-02 20:28] LABS: Triglycerides 90 mg/dL (< 150)
[2023-06-02 20:35] LABS: Cholesterol 187 mg/dL (< 200); HDL Cholesterol 56 mg/dL (40-59); LDL Cholesterol 121 mg/dL (< 100)
[2023-06-02] MEDS: ATORVASTATIN 20 MG TAB PO SCH (22:02)
[2023-06-02] MEDS: FAMOTIDINE 20 MG TAB PO SCH (22:02)
[2023-06-02] MEDS: METOPROLOL TARTRATE 50 MG TAB PO SCH (22:02)
[2023-06-02 22:08] VITALS: BP 129/86
[2023-06-02] MEDS ORDERED: IOHEXOL 350 MG/ML 100ML IJ ONE (23:09)
[2023-06-03] VITALS (7 sets, daily range): BP systolic 135–167; BP diastolic 93–121
[2023-06-03] MEDS: KETOROLAC TROMETH 30 MG/ML 1ML VIAL IV SCH ×4 (00:29→17:53)
[2023-06-03 05:21] LABS: Basophils # (auto) 0 10 ^3/uL (0-0.2); Basophils % (auto) 0.5 % (0.0-2.0); Eosinophils # (auto) 0.3 10 ^3/uL (0-0.8); Eosinophils % (auto) 4.1 % (0.0-7.0); Hematocrit 47.7 % (41.0-53.0); Hemoglobin 16.4 g/dL (13.5-17.5); Lymphocytes # (auto) 1.3 10 ^3/uL (0.4-5.4); Lymphocytes % (auto) 18.8 % (10.0-50.0); Mean Corpuscular Hemoglobin 29.4 pg (28.0-32.0); Mean Corpuscular Hgb Conc. 34.3 g/dL (32.0-36.0); Mean Corpuscular Volume 85.8 fL (80.0-100.0); Monocytes # (auto) 1.1 10 ^3/uL (0-1.3); Monocytes % (auto) 15.6 % (0.0-12.0); Neutrophils # (auto) 4.4 10 ^3/uL (1.6-8.6); Nucleated Red Blood Cells % 0.2 %; Red Blood Cells 5.56 10^6/uL (4.5-5.90); White Blood Cell 7.1 10^3/uL (4.4-10.8)
[2023-06-03 05:41] LABS: Calcium 8.7 mg/dL (8.5-10.1)
[2023-06-03 05:46] LABS: BUN/Creatinine Ratio 14.7 (10.0-20.0); Bilirubin, Total 0.7 mg/dL (0.2-1.0); Total Protein 6.6 g/dL (6.4-8.2)
[2023-06-03 07:06] LABS: RPR Non Reactive (Non Reactive)
[2023-06-03] MEDS: FAMOTIDINE 20 MG TAB PO SCH ×2 (11:40→22:25)
[2023-06-03] MEDS: ASPirin 81 mg TAB PO SCH (11:40)
[2023-06-03] MEDS: HCTZ 25 MG TAB PO SCH (11:41)
[2023-06-03] MEDS: SODIUM CHLORIDE 0.9% 1,000 ML IV SCH (11:41)
[2023-06-03] MEDS: METOPROLOL TARTRATE 50 MG TAB PO SCH ×2 (11:41→22:26)
[2023-06-03] MEDS: hydrALAZINE HCL 20 MG/ML VL IV PRN (13:47)
[2023-06-03] MEDS: CYCLOBENZAPRINE HCL 10 MG TAB PO PRN (22:24)
[2023-06-03] MEDS: ATORVASTATIN 20 MG TAB PO SCH (22:24)
[2023-06-04] MEDS: KETOROLAC TROMETH 30 MG/ML 1ML VIAL IV SCH ×4 (00:43→18:00)
[2023-06-04 05:00] VITALS: BP 129/102
[2023-06-04 05:47] LABS: Basophils # (auto) 0 10 ^3/uL (0-0.2); Basophils % (auto) 0.7 % (0.0-2.0); Eosinophils # (auto) 0.5 10 ^3/uL (0-0.8); Eosinophils % (auto) 6.8 % (0.0-7.0); Hematocrit 49.6 % (41.0-53.0); Hemoglobin 17.3 g/dL (13.5-17.5); Lymphocytes # (auto) 1.5 10 ^3/uL (0.4-5.4); Lymphocytes % (auto) 22.6 % (10.0-50.0); Mean Corpuscular Hemoglobin 29.4 pg (28.0-32.0); Mean Corpuscular Hgb Conc. 34.8 g/dL (32.0-36.0); Mean Corpuscular Volume 84.5 fL (80.0-100.0); Monocytes # (auto) 1.1 10 ^3/uL (0-1.3); Monocytes % (auto) 16.2 % (0.0-12.0); Neutrophils # (auto) 3.6 10 ^3/uL (1.6-8.6); Neutrophils % (auto) 53.7 % (37.0-80.0); Nucleated Red Blood Cells % 0.2 %; Red Blood Cells 5.87 10^6/uL (4.5-5.90); Red Cell Distribution Width 14.1 % (11.8-14.3); White Blood Cell 6.7 10^3/uL (4.4-10.8)
[2023-06-04 05:48] LABS: Calcium 8.8 mg/dL (8.5-10.1); Potassium 4.4 mmol/L (3.5-5.1)
[2023-06-04 05:53] LABS: BUN/Creatinine Ratio 15.5 (10.0-20.0); Bilirubin, Total 0.6 mg/dL (0.2-1.0); Total Protein 6.7 g/dL (6.4-8.2)
[2023-06-04 09:00] VITALS: BP 143/100
[2023-06-04] MEDS: ASPirin 81 mg TAB PO SCH (10:23)
[2023-06-04] MEDS: FAMOTIDINE 20 MG TAB PO SCH ×2 (10:25→21:25)
[2023-06-04] MEDS: METOPROLOL TARTRATE 50 MG TAB PO SCH ×2 (10:26→21:25)
[2023-06-04] MEDS: HCTZ 25 MG TAB PO SCH (10:27)
[2023-06-04 13:00] VITALS: BP 143/95
[2023-06-04] MEDS: MORPHINE SULFATE INJ 2 MG/ml SYRG IV PRN (19:43)
[2023-06-04] MEDS: ATORVASTATIN 20 MG TAB PO SCH (21:24)
[2023-06-04] MEDS: CYCLOBENZAPRINE HCL 10 MG TAB PO PRN (21:25)
[2023-06-04 22:00] VITALS: BP 119/101
[2023-06-05 05:00] VITALS: BP 129/101
[2023-06-05] MEDS ORDERED: ASPI-325 PO (08:36)
[2023-06-05] MEDS ORDERED: MET50T PO (08:36)
[2023-06-05] MEDS ORDERED: ATOR40TA52 PO (08:36)
[2023-06-05] MEDS ORDERED: HYDR25TA5 GT (08:36)
[2023-06-05 09:00] VITALS: BP 132/100
[2023-06-05] MEDS: FAMOTIDINE 20 MG TAB PO SCH (09:45)
[2023-06-05] MEDS: ASPirin 81 mg TAB PO SCH (09:45)
[2023-06-05] MEDS: HCTZ 25 MG TAB PO SCH (09:45)
[2023-06-05] MEDS: METOPROLOL TARTRATE 50 MG TAB PO SCH (09:45)
[2023-06-05 10:41] VITALS: BP 136/100
== END 2023-06-05 11:40 | disposition home or self-care (01) | DRG 91 ==
LOC: ER 02:58 → TELE 10:21 → TELE-EAST 21:40
PROVIDERS: ADMIT Nurse Practitioner Family; ATTEND Internal Medicine
DX: R20.2 Paresthesia of skin (principal); N17.0 Acute kidney failure with tubular necrosis; I16.1 Hypertensive emergency; I71.40 Abdominal aortic aneurysm, without rupture, unspecified; D72.829 Elevated white blood cell count, unspecified; K43.9 Ventral hernia without obstruction or gangrene; N18.9 Chronic kidney disease, unspecified; S16.1XXA Strain of muscle, fascia and tendon at neck level, initial encounter; W18.39XA Other fall on same level, initial encounter; I12.9 Hypertensive chronic kidney disease with stage 1 through stage 4 chronic kidney disease, or unspecified chronic kidney disease; E78.5 Hyperlipidemia, unspecified; Y93.89 Activity, other specified; Y92.89 Other specified places as the place of occurrence of the external cause; Y99.8 Other external cause status; Z79.82 Long term (current) use of aspirin; Z79.899 Other long term (current) drug therapy; Z80.7 Family history of other malignant neoplasms of lymphoid, hematopoietic and related tissues; Z82.3 Family history of stroke; Z82.49 Family history of ischemic heart disease and other diseases of the circulatory system; Z86.73 Personal history of transient ischemic attack (TIA), and cerebral infarction without residual deficits
CPT/HCPCS: 36415; 70450; 70496; 70551; 71250; 72125; 72141; 74176; 80053; 80061; 80307; 81001; 83735; 83880; 84100; 84439; 84443; 84484; 85025; 85610; 86592; 87081; 92610; 93306; 93886; 96374; 96375; 96376; 97110; 97116; 97163; 97530; G0378; J1885; J2405